=== PATIENT | male | born 1955 | race Caucasian/White ===

== ENCOUNTER → 2018-01-22 15:09 | Outpatient (CLI) | payer OTHER, MEDICAID, SELFPAY | PROVIDERS: PCP Family Medicine; Visit Provider Family Medicine | DX: M85.88 Other specified disorders of bone density and structure, other site (principal); Z92.241 Personal history of systemic steroid therapy | CPT/HCPCS: 77080 ==

== ENCOUNTER 2019-02-14 11:48 | Outpatient (RCR) | payer MEDICARE, MEDICAID, SELFPAY ==
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
== END 2019-05-15 12:04 ==
LOC: PHYS 11:48
PROVIDERS: PCP Family Medicine; Visit Provider Family Medicine
DX: M54.12 Radiculopathy, cervical region (principal); M54.2 Cervicalgia
CPT/HCPCS: 97140; 97162; 97535

== ENCOUNTER → 2019-02-14 12:01 | Outpatient (CLI) | payer MEDICARE, MEDICAID, SELFPAY ==
--- NOTE | 2019-02-14 | DI.RAD.S_ITS ---
PROCEDURE: XR ELBOW RT MIN 3V INDICATIONS: RIGHT ELBOW PAIN TECHNIQUE: 3 views of the elbow were acquired. COMPARISON: None. FINDINGS: Bones: No fractures or dislocations. No suspicious bony lesions. Soft tissues: No elbow joint effusion. No suspicious soft tissue calcifications. IMPRESSION: No elbow fracture or dislocation. No soft tissue abnormality. Dictated by: Slick Alas M.D. on 02/14/2019 at 20:22 Approved by: Slick Alas M.D. on 02/14/2019 at 20:22
== END ==
PROVIDERS: PCP Family Medicine; Visit Provider Psychiatry & Neurology Neurology
DX: M25.521 Pain in right elbow (principal)
CPT/HCPCS: 73080

== ENCOUNTER → 2019-07-29 17:42 | Outpatient (CLI) | payer OTHER, MEDICAID, SELFPAY ==
--- NOTE | 2019-07-29 | DI.RAD.S_ITS ---
PROCEDURE: XR HAND RT MIN 3V INDICATIONS: Hand Pain TECHNIQUE: 3 views of the hand(s) acquired. COMPARISON: None. FINDINGS: Bones: No fractures or dislocations. Carpal bones are normally aligned. No suspicious bony lesions. Soft tissues: No suspicious soft tissue calcifications. IMPRESSION: No trauma. Minimal degenerative osteoarthritis at the base of the first and second proximal phalanx. Dictated by: Scar Pantoja M.D. on 07/30/2019 at 9:27 Approved by: Scar Pantoja M.D. on 07/30/2019 at 9:28
--- NOTE | 2019-07-29 | DI.MRI.S_ITS ---
PROCEDURE: MR CERVICAL SPINE WO/W CON INDICATIONS: Cervicalgia TECHNIQUE: Noncontrast sagittal T1 spin echo and T2 fast spin echo, sagittal STIR, foraminal oblique sagittal T2 fast spin echo, axial gradient echo or T2 fast spin echo through the cervical spine. After the administration of contrast, axial and sagittal T1 spin echo with fat saturation through the cervical spine. COMPARISON: None. FINDINGS: Image quality: Motion is present on multiple sequences, limiting areas of fine detail evaluation. Alignment and curvature: There is straightening and slight reversal of cervical curvature with apex at C4-5. There is trace retrolisthesis of C3 on C4, C5 on C6, C6 on C7. Marrow: Marrow is normal in overall signal, without suspicious enhancement. Spinal cord: Visualized spinal cord has normal size and signal. No cerebellar tonsillar herniation. No abnormal intramedullary enhancement. Paraspinous soft tissues: No paravertebral masses or suspicious enhancement. Discs: Mild to moderate desiccation is present throughout the cervical spine. C2-3: Minimal disc bulge without spinal stenosis or foraminal narrowing. C3-4: Mild disc bulge with minimal effacement of the anterior thecal sac. Mild to moderate left and mild right foraminal narrowing with uncovertebral hypertrophy. C4-5: Mild disc bulge with minimal effacement the anterior thecal sac. Mild right and moderate to severe left foraminal narrowing with uncovertebral hypertrophy. C5-6: Mild disc bulge with minimal spinal stenosis. Moderate bilateral foraminal narrowing, with uncovertebral hypertrophy. C6-7: Mild disc bulge with minimal to mild spinal stenosis. Mild to moderate left and moderate right foraminal narrowing with uncovertebral hypertrophy. C7-T1: Mild disc bulge with minimal bilateral foraminal narrowing. IMPRESSION: 1. Motion is present limiting areas of definitive evaluation particularly degree of foraminal narrowing within the foramina. 2. Multiple disc bulges. 3. Multilevel foraminal narrowing appearing most prominent at C4-5 and C5-6. Foraminal narrowing is secondary to uncovertebral arthropathy. Dictated by: Nisreen Phillips M.D. on 07/30/2019 at 9:51 Approved by: Nisreen Phillips M.D. on 07/30/2019 at 10:43
== END ==
PROVIDERS: PCP Family Medicine; Referring Provider Psychiatry & Neurology Neurology; Visit Provider Psychiatry & Neurology Neurology
DX: M50.21 Other cervical disc displacement, high cervical region (principal); M47.812 Spondylosis without myelopathy or radiculopathy, cervical region; M48.02 Spinal stenosis, cervical region; R13.10 Dysphagia, unspecified; M79.641 Pain in right hand
CPT/HCPCS: 72156; 73130

== ENCOUNTER → 2019-08-13 16:52 | Outpatient (CLI) | payer OTHER, MEDICAID, SELFPAY ==
--- NOTE | 2019-08-13 | DI.MRI.S_ITS ---
PROCEDURE: MR STROKE Pre- and post-contrast brain MRI, non-contrast brain MR angiogram, pre- and postcontrast neck MR angiogram INDICATIONS: Episodes of temporary right eye blindness. Migraines TECHNIQUE: Brain: Noncontrast axial T1 spin echo, axial T2 fast spin echo, sagittal and axial FLAIR, coronal T2 fast spin echo, axial gradient echo, axial diffusion and ADC through the brain. After the administration of contrast, axial 3D VIBE of the cranial vasculature and brain. Brain MRA: Non-contrast 3-D time of flight MR angiogram, with multiple zxmnbgf-lxargnvbh-wrxoqakexz (MIP) reformats performed. Neck MRA: Axial and sagittal TruFISP through the neck. Coronal dynamic MR angiogram during administration of contrast in the arterial and venous phases, with 3-dimenstional xethkep-avljzxmpy-mnfattapag (MIP) reformats constructed from subtraction images. COMPARISON: None. FINDINGS: Image quality: Excellent. BRAIN: CSF spaces: Ventricles are normal in size and shape. Basal cisterns are patent. No extra-axial fluid collections. Brain: No intracranial bleeds or mass effects. Irizarry-white matter interface is normal. Diffusion weighted images show no acute ischemic insults. Brainstem appears normal. Normal intravascular flow voids are present. No abnormal intracranial enhancement. Skull and face: Calvarial marrow signal is normal. Orbits appear normal. Sinuses: Sinuses and mastoids are clear. BRAIN MR ANGIOGRAM: Anterior circulation: Intracranial internal carotid arteries are normal in size and enhancement. Left A1 segment is not visualized concerning for occluded A1 segment versus congenitally absent A1 segment. Distal left anterior cerebral artery branches are supplied from the right side via anterior communicating artery. Normal flow is seen in the right anterior cerebral artery. The flow within the middle cerebral arteries is normal and symmetric. The anterior communicating artery is seen. No stenoses, occlusions, or aneurysms. Posterior circulation: The visualized portions of the vertebral arteries demonstrate normal caliber, and join to form a normal appearing basilar artery. The flow within the posterior cerebral arteries is normal and symmetric. No stenoses, occlusions, or aneurysms. NECK MR ANGIOGRAM: Carotids: Great vessels demonstrate a conventional anatomy as they arise from the aortic arch. The origins of the common carotid arteries appear patent. The calibers and courses of both common carotid arteries are normal. The bifurcation regions appear normal bilaterally. The internal carotid arteries demonstrate normal course and caliber. Posterior circulation: The origins of the vertebral arteries appear patent. More superior portions of both vertebral arteries demonstrate normal course and caliber, and join to form a normal appearing basilar artery. Miscellaneous: Subclavian arteries appear patent. Pre-contrast images through the neck show no soft tissue abnormalities. IMPRESSION: BRAIN MRI: No evidence of acute infarction. No intracranial bleed or midline shift. No abnormal intracranial enhancement. 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 Rest of the intracranial circulation is within normal limits. NECK MR ANGIOGRAM: No hemodynamically significant stenosis is seen in the carotid arteries and vertebral arteries. Dictated by: Slick Alas M.D. on 08/13/2019 at 18:14 Approved by: Slick Alas M.D. on 08/13/2019 at 19:30
== END ==
PROVIDERS: PCP Family Medicine; Referring Provider Psychiatry & Neurology Neurology; Visit Provider Psychiatry & Neurology Neurology
DX: G45.3 Amaurosis fugax (principal); G43.909 Migraine, unspecified, not intractable, without status migrainosus
CPT/HCPCS: 70548; 70553; A9579

== ENCOUNTER → 2020-02-24 13:10 | Outpatient (CLI) | payer OTHER, MEDICAID, SELFPAY | PROVIDERS: PCP Family Medicine; Referring Provider Family Medicine; Visit Provider Family Medicine | DX: M85.88 Other specified disorders of bone density and structure, other site (principal); Z87.39 Personal history of other diseases of the musculoskeletal system and connective tissue; Z79.83 Long term (current) use of bisphosphonates | CPT/HCPCS: 77080 ==

== ENCOUNTER → 2021-12-21 18:14 | Outpatient (CLI) | payer MEDICARE, MEDICAID, SELFPAY ==
--- NOTE | 2021-12-21 18:24 | DI.MRI.S_ITS ---
PROCEDURE: MR STROKE Pre- and post-contrast brain MRI, non-contrast brain MR angiogram, pre- and postcontrast neck MR angiogram INDICATIONS: HEADACHE/AMAUROSIS FUGAX OF RT EYE TECHNIQUE: Brain: Noncontrast axial T1 spin echo, axial T2 fast spin echo, sagittal and axial FLAIR, coronal T2 fast spin echo, axial gradient echo, axial diffusion and ADC through the brain. After the administration of contrast, axial 3D VIBE of the cranial vasculature and brain. Brain MRA: Non-contrast 3-D time of flight MR angiogram, with multiple giagtxf-ddcoitbey-owdgafzqhs (MIP) reformats performed. Neck MRA: Axial and sagittal TruFISP through the neck. Coronal dynamic MR angiogram during administration of contrast in the arterial and venous phases, with 3-dimenstional czddcfq-pucroawie-dfiimujcik (MIP) reformats constructed from subtraction images. COMPARISON: [facility], MR, MR STROKE, 08/13/2019, 17:12. FINDINGS: Image quality: Excellent. BRAIN: CSF spaces: Ventricles are normal in size and shape. Basal cisterns are patent. No extra-axial fluid collections. Brain: No intracranial bleeds or mass effects. There is mild diffuse cerebral volume loss. Minimal degree of patchy high FLAIR signal within the periventricular and subcortical white matter. Irizarry-white matter interface is normal. Diffusion weighted images show no acute ischemic insults. Brainstem appears normal. Normal intravascular flow voids are present. No abnormal intracranial enhancement. Skull and face: Calvarial marrow signal is normal. Orbits appear normal. Sinuses: Sinuses and mastoids are clear. There is a 10 mm diameter region of postcontrast enhancement at the left lateral aspect of the sphenoid sinus, which is unchanged. BRAIN MR ANGIOGRAM: Anterior circulation: Intracranial internal carotid arteries are normal in size and enhancement. The flow within the paired anterior cerebral arteries is normal and symmetric. The flow within the middle cerebral arteries is normal and symmetric. The anterior communicating artery is seen. No stenoses, occlusions, or aneurysms. Posterior circulation: The visualized portions of the vertebral arteries demonstrate normal caliber, and join to form a normal appearing basilar artery. The flow within the posterior cerebral arteries is normal and symmetric. No stenoses, occlusions, or aneurysms. NECK MR ANGIOGRAM: Proximal great vessels are not well seen. Right subclavian artery is patent. Right vertebral artery is small in caliber and patent. Right common, internal, and external carotid arteries are patent. Left common, internal, and external carotid arteries are patent. Left subclavian artery is patent. Left vertebral artery is patent. Pre-contrast images through the neck show no soft tissue abnormalities. IMPRESSION: BRAIN MRI: 1. No acute process. No recent infarct. 2. Mild volume loss. Minimal small vessel ischemic disease. 3. 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 BRAIN MR ANGIOGRAM: 1. Negative cerebral MR angiography. NECK MR ANGIOGRAM: 1. No internal carotid artery stenosis bilaterally. 2. Patent bilateral vertebral arteries. Dictated by: Carla Cortes M.D. on 12/22/2021 at 9:03 Approved by: Carla Cortes M.D. on 12/22/2021 at 9:10
== END ==
PROVIDERS: PCP Family Medicine; Referring Provider Psychiatry & Neurology Neurology; Visit Provider Psychiatry & Neurology Neurology
DX: R51.9 Headache, unspecified (principal); G45.3 Amaurosis fugax; H53.2 Diplopia; G89.29 Other chronic pain
CPT/HCPCS: 70548; 70553; A9579

== ENCOUNTER → 2022-04-11 15:22 | Outpatient (CLI) | payer MEDICARE, MEDICAID, SELFPAY | PROVIDERS: PCP Family Medicine; Referring Provider Physician Assistant Medical; Visit Provider Physician Assistant Medical | DX: M85.88 Other specified disorders of bone density and structure, other site (principal); M06.9 Rheumatoid arthritis, unspecified; Z13.820 Encounter for screening for osteoporosis; Z87.311 Personal history of (healed) other pathological fracture | CPT/HCPCS: 77080 ==

== ENCOUNTER → 2022-07-04 15:44 | Outpatient (CLI) | payer MEDICARE, MEDICAID, SELFPAY ==
--- NOTE | 2022-07-04 | DI.RAD.S_ITS ---
PROCEDURE: XR RIBS RT MIN 3V W CXR 1V INDICATIONS: INTERCOSTAL PAIN TECHNIQUE: 2 views of the right ribs were acquired, along with a single view chest. COMPARISON: None. FINDINGS: Surgical changes and devices: None. Bones and chest wall: No fractures or dislocations. No suspicious bony lesions. Overlying soft tissues appear unremarkable. Lungs and pleura: No pleural effusions or pneumothorax. Lungs appear clear. Mediastinum: Mediastinal contours appear normal. Heart size is normal. IMPRESSION: No radiographic abnormalities. Dictated by: Rosa Elena Lara M.D. on 07/04/2022 at 16:54 Approved by: Rosa Elena Lara M.D. on 07/04/2022 at 16:54
== END ==
PROVIDERS: PCP Family Medicine; Referring Provider Physician Assistant Medical; Visit Provider Physician Assistant Medical
DX: R07.82 Intercostal pain (principal)
CPT/HCPCS: 71101

== ENCOUNTER → 2023-03-06 08:58 | Outpatient (CLI) | payer MEDICARE, MEDICAID, SELFPAY ==
--- NOTE | 2023-03-06 | DI.MRI.S_ITS ---
PROCEDURE: MR HEAD/BRAIN WO/W CON INDICATIONS: vison loss/headaches TECHNIQUE: Noncontrast axial T1 spin echo, axial T2 fast spin echo, sagittal and axial FLAIR, coronal T2 fast spin echo, axial gradient echo, axial diffusion and ADC through the brain. After the administration of contrast, axial and coronal and sagittal T1 spin echo with fat saturation through the brain. COMPARISON: None. FINDINGS: Image quality: Mild motion artifact. CSF spaces: Basal cisterns are patent. No extra-axial fluid collections. Ventricles are normal in size and shape. Brain: No midline shift. No intracranial bleeds or masses. No abnormal intracranial enhancement. There is mild cerebral volume loss for age. There is minimal periventricular white matter chronic small vessel ischemic change. The brainstem appears normal. Diffusion-weighted images demonstrate no acute infarct. Old tiny infarcts in the bilateral cerebral hemispheres.. Normal intravascular flow voids are present. Skull and face: Calvarial marrow is normal in signal. Orbits appear normal. Sinuses: Sinuses and mastoids appear clear. IMPRESSION: No cause for patient's symptoms are identified. No acute intracranial abnormalities. Mild age-related global volume loss and minimal chronic microvascular ischemic changes. Dictated by: Sergio Givens M.D. on 03/06/2023 at 12:28 Approved by: Sergio Givens M.D. on 03/06/2023 at 12:33
== END ==
LOC: MRI 08:59
PROVIDERS: PCP Family Medicine; Referring Provider Psychiatry & Neurology Neurology; Visit Provider Psychiatry & Neurology Neurology
DX: H54.61 Unqualified visual loss, right eye, normal vision left eye (principal); R51.9 Headache, unspecified
CPT/HCPCS: 70553

== ENCOUNTER → 2023-09-27 16:44 | Outpatient (CLI) | payer MEDICARE, MEDICAID, SELFPAY ==
--- NOTE | 2023-09-27 16:48 | DI.RAD.S_ITS ---
PROCEDURE: XR FOOT RT MIN 3V INDICATIONS: Possible foreign body in right foot TECHNIQUE: 3 views of the foot were acquired. COMPARISON: [facility], FOOT 3V LEFT, 08/08/2008, 14:44. [facility], FOOT 3V LEFT, 07/03/2008, 11:30. FINDINGS: Bones: Skin marker at the 2-3rd digit proximal phalanx. No fractures or dislocations. No suspicious bony lesions. Hallux valgus deformity with bunion formation. Soft tissues: No tibiotalar joint effusion. Achilles tendon appears normal. No radiopaque foreign body. IMPRESSION: No radiopaque foreign body demonstrated. Targeted ultrasound could be considered for further evaluation. Dictated by: Zack Jacob M.D. on 09/27/2023 at 17:48 Approved by: Zack Jacob M.D. on 09/27/2023 at 17:49
== END ==
PROVIDERS: PCP Physician Assistant; Referring Provider Nurse Practitioner Family; Visit Provider Nurse Practitioner Family
DX: M20.11 Hallux valgus (acquired), right foot (principal); M21.611 Bunion of right foot; M79.671 Pain in right foot
CPT/HCPCS: 73630

== ENCOUNTER → 2023-10-09 07:31 | Outpatient (CLI) | payer MEDICARE, MEDICAID, SELFPAY ==
--- NOTE | 2023-10-09 | DI.CT.S_ITS ---
PROCEDURE: CT FOOT RIGHT WITHOUT CON INDICATIONS: PAIN IN RIGHT FOOT TECHNIQUE: Noncontrast 1-1.5 mm axial sections acquired from above the tibiotalar joint to the bottom of the calcaneus, with coronal and sagittal reformats. COMPARISON: [facility], CR, XR FOOT RT MIN 3V, 09/27/2023, 16:50. FINDINGS: Image quality: Excellent. Bones: No acute fracture or dislocation. Joint spaces are well maintained. Soft tissues: Subcutaneous edema plantar to the 2nd and 3rd metatarsal head, with small amount of fluid. There is punctate mildly hyperdense focus plantar to the 2nd metatarsal, in the area of subcutaneous edema, measuring approximately 2 mm (series 3, image 162), which may represent a tiny glass fragment. IMPRESSION: Subcutaneous edema plantar to the 2nd and 3rd metatarsal head with small amount of fluid. Limited evaluation for drainable fluid collection given noncontrast exam. 2 mm punctate hyperdensity in the subcutaneous fat plantar to the 2nd metatarsal, nonspecific. This may represent a small glass fragment. Dictated by: Mar Spangler M.D. on 10/09/2023 at 17:42 Approved by: Mar Spangler M.D. on 10/09/2023 at 17:58
== END ==
LOC: CT 07:32
PROVIDERS: PCP Physician Assistant; Referring Provider Physician Assistant; Visit Provider Physician Assistant
DX: M79.671 Pain in right foot (principal); R60.0 Localized edema
CPT/HCPCS: 73700

== ENCOUNTER → 2023-10-26 10:40 | Outpatient (CLI) | payer MEDICARE, MEDICAID, SELFPAY ==
--- NOTE | 2023-10-26 | DI.MRI.S_ITS ---
PROCEDURE: MR FOOT RT WO CON INDICATIONS: Residual foreign body in soft tissue TECHNIQUE: Multiphasic, multisequence MRI of the forefoot was performed, without intravenous contrast administration. COMPARISON: None. FINDINGS: Image quality: Excellent. There is a multi-septated fluid collection predominantly under the head of the 2nd and 3rd metatarsals in total measuring 4.3 x 3.6 x 2.2 centimeters in maximal dimension. This may represent a large ganglion however other etiologies such as abscess or synovial cell sarcoma are within the differential. The marrow signal in the visualized bones appears within normal limits. There is mild bunion deformity involving the great toe with some mild to moderate osteoarthritic degenerative change involving the right 1st metatarsophalangeal joint. Visualized ligaments and tendons are intact. There is some [id number]-[id number] nonspecific edematous change in the subcutaneous tissues and I cannot exclude a cellulitis type pattern. Musculature appears within normal limits. IMPRESSION: 4.3 x 3.6 x 2.2 centimeter fluid collection predominantly under the head of the 2nd and 3rd metatarsals. This may represent a large ganglion however other etiologies such as abscess or synovial cell sarcoma would be within the differential. 2. Mild bunion deformity involving the great with associated mild to moderate osteoarthritic degenerative change involving the 1st tarsometatarsal joint. 3. Mild to moderate edematous changes in the subcutaneous tissues of the forefoot which is nonspecific but may represent a cellulitis type pattern. Clinical correlation is recommended. 4. No definite foreign body identified. If further evaluation is clinically indicated a CT scan may be of further clinical value. Dictated by: Jim Negron M.D. on 10/26/2023 at 15:39 Approved by: Jim Negron M.D. on 10/26/2023 at 15:49
== END ==
PROVIDERS: PCP Physician Assistant; Referring Provider Physician Assistant; Visit Provider Physician Assistant
DX: M79.5 Residual foreign body in soft tissue (principal); M21.611 Bunion of right foot
CPT/HCPCS: 73718

== ENCOUNTER → 2024-01-16 18:03 | Outpatient (CLI) | payer MEDICARE, MEDICAID, SELFPAY ==
--- NOTE | 2024-01-16 18:20 | DI.MRI.S_ITS ---
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 COMPARISON: None. FINDINGS: Image quality: Diagnostic. Alignment and Curvature: There is mild straightening of the cervical lordosis. Bone Marrow: Marrow demonstrates normal overall signal. Vertebra and discs: There is mild chronic appearing anterior wedge compression deformities involving C3-C6. There is mild intervertebral disc height loss at C3-C7. Spinal Cord: Visualized spinal cord has normal size and signal. No cerebellar tonsillar herniation. Paraspinous Soft Tissues: No paravertebral masses. Prevertebral soft tissues are normal in thickness. C2-C3: No central canal stenosis. Facet arthropathy results in severe left neural foraminal stenosis. C3-C4: Posterior longitudinal ligamentous thickening and small disc bulge result in effacement of the ventral thecal sac with mild central canal stenosis and mild bilateral neural foraminal stenosis. C4-C5: No central canal stenosis. Facet arthropathy results in moderate to severe right neural foraminal stenosis. C5-C6: Ligamentum flavum thickening, facet arthropathy and mild disc bulge result in mild central canal stenosis and mild bilateral neural foraminal stenosis. C6-C7: Posterior longitudinal ligament thickening, small disc bulge and facet arthropathy result in mild central canal stenosis without neural foraminal stenosis. C7-T1: Normal appearance. IMPRESSION: Neural foraminal stenosis which is severe on the left at C2-C3 and moderate to severe on the right at C4-C5. Dictated by: Ariel Rodriguez M.D. on 01/17/2024 at 13:45 Approved by: Ariel Rodriguez M.D. on 01/17/2024 at 13:55
--- NOTE | 2024-01-16 18:20 | DI.MRI.S_ITS ---
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 COMPARISON: None. FINDINGS: Image quality: Excellent. Rotator cuff: The supraspinatus, infraspinatus, and subscapularis tendons appear intact throughout. Sagittal images demonstrate no significant muscle atrophy. Bones and bursae: Subcortical cysts are seen at the greater tuberosity at the insertion of the supraspinatus as well as at the insertion of the subscapularis. Mildly heterogenous bone marrow signal. No bone marrow contusions or fractures. No acromioclavicular joint degeneration. The acromion demonstrates conventional anatomy, without an os acromiale. No pathologic subacromial-subdeltoid or subcoracoid bursal fluid is present. Capsule and soft tissues: Labrum appears intact. The long head of the biceps tendon demonstrates normal location and morphology. The rotator interval appears normal, without fibrosis. The coracohumeral ligament is normal in thickness. IMPRESSION: 1. Mild bony degeneration at the subscapularis tendon and supraspinatus tendon insertions. 2. Heterogenous bone marrow signal. Dictated by: Ariel Rodriguez M.D. on 01/17/2024 at 13:40 Approved by: Ariel Rodriguez M.D. on 01/17/2024 at 13:45
== END ==
PROVIDERS: PCP Physician Assistant; Referring Provider Nurse Practitioner Family; Visit Provider Nurse Practitioner Family
DX: M47.812 Spondylosis without myelopathy or radiculopathy, cervical region (principal); M48.02 Spinal stenosis, cervical region; M50.31 Other cervical disc degeneration, high cervical region; M75.41 Impingement syndrome of right shoulder; M51.9 Unspecified thoracic, thoracolumbar and lumbosacral intervertebral disc disorder; M43.8X2 Other specified deforming dorsopathies, cervical region
CPT/HCPCS: 72141; 73221

== ENCOUNTER → 2024-04-29 18:22 | Outpatient (CLI) | payer MEDICARE, MEDICAID, SELFPAY ==
--- NOTE | 2024-04-29 | DI.MRI.S_ITS ---
PROCEDURE: MR HEAD/BRAIN WO/W CON INDICATIONS: DIPLOPIA TECHNIQUE: Noncontrast axial T1 spin echo, axial T2 fast spin echo, sagittal and axial FLAIR, coronal T2 fast spin echo, axial gradient echo, axial diffusion and ADC through the brain. After the administration of contrast, axial and coronal and sagittal 3D VIBE or T1 spin echo with fat saturation through the brain. COMPARISON: [facility], MR, MR HEAD/BRAIN WO/W CON, 03/06/2023, 9:21. FINDINGS: CSF Spaces: Basal cisterns are patent. No extra-axial fluid collections. Ventricles are normal in size and shape. Brain: No intracranial masses or hemorrhage. Irizarry/white matter interface is normal. Brainstem appears normal. Diffusion-weighted sequence is unremarkable without evidence of acute infarct. Normal intravascular flow voids are present. Mild atrophy and white matter chronic ischemic change. Old cerebellar lacunar infarcts Skull and face: Calvarial marrow is normal in signal. Orbits appear normal. Sinuses: Sinuses and mastoids appear clear. IMPRESSION: Mild atrophy, chronic ischemic change, and small cerebellar old lacunar infarcts without evidence of acute infarct, hemorrhage or mass lesion. Approved by: James Solorio M.D. on 04/30/2024 at 12:32
--- NOTE | 2024-04-29 | DI.MRI.S_ITS ---
PROCEDURE: MR THORACIC SPINE WO CON INDICATIONS: DIPLOPIA,VISION LOSS/ pain in tspine TECHNIQUE: Noncontrast sagittal T1 spine echo and T2 fast spin echo, sagittal STIR, and T2 fast spin echo through the thoracic spine. COMPARISON: None. FINDINGS: Image quality: Excellent. Alignment and Curvature: There is normal bony alignment. Bone Marrow: Marrow is of normal overall signal. No acute vertebral body compression fractures. Spinal Cord: Visualized spinal cord is normal in size and signal. Paraspinous Soft Tissues: No paravertebral masses. Incidental moderate hiatal hernia Miscellaneous: On axial images, central canal and foramina appear widely patent at all scanned levels. IMPRESSION: Normal MRI of the thoracic spine. No canal stenosis or intrinsic cord lesion. Incidental moderate hiatal hernia Approved by: James Solorio M.D. on 04/30/2024 at 11:44
== END ==
PROVIDERS: PCP Physician Assistant; Referring Provider Physician Assistant; Visit Provider Physician Assistant
DX: H53.2 Diplopia (principal); H54.7 Unspecified visual loss; M54.6 Pain in thoracic spine; K44.9 Diaphragmatic hernia without obstruction or gangrene
CPT/HCPCS: 70553; 72146; A9579

== ENCOUNTER → 2024-05-09 18:44 | Outpatient (CLI) | payer MEDICARE, MEDICAID, SELFPAY ==
--- NOTE | 2024-05-09 | DI.MRI.S_ITS ---
PROCEDURE: MR FOOT RT WO/W CON INDICATIONS: soft tissue mass TECHNIQUE: Noncontrast coronal T1 spin echo and STIR, sagittal T1 spin echo with fat saturation and STIR, axial T1 spin echo and T2 fast spin echo with fat saturation. After the administration of contrast, axial/sagittal/coronal T1 spin echo with fat saturation through the right foot. COMPARISON: [facility], MR, MR FOOT RT WO CON, 10/26/2023, 10:58. FINDINGS: Image quality: Excellent. Bones: Mild marrow edema is noted involving lateral aspect of 2nd metatarsal head with mild contrast enhancement without discrete fracture line. No other area of abnormal marrow signal. No acute fracture or dislocation. No metatarsal stress fractures. No suspicious intraosseous lesion. No other area of abnormal intraosseous enhancement. Mild midfoot and forefoot joint osteoarthritic changes are seen more notably involving 1st MTP joint and articulation between 1st metatarsal head and sesamoids. Soft tissues: Previously described cystic structure over plantar aspect of 2nd toe at the level of 2nd proximal phalangeal shaft is no longer present which may indicate interval surgical resection. No discrete enhancing soft tissue mass or drainable fluid collection is identified in right foot on the current study. Trace amount of fluid within 1st interspace between 1st and 2nd metatarsal heads, which may represent intermetatarsal bursal fluid. Visualized plantar foot muscles show no gross abnormalities. Extensor and flexor tendons are intact. Principal Lisfranc ligament is intact. Sagittal views shows no evidence of plantar plate tear. IMPRESSION: 1. Suggestion of interval resection/resolution of previously noted cystic structure over plantar aspect of 2nd toe at the level of 2nd proximal phalangeal shaft and 2nd MTP joint. No discrete enhancing soft tissue mass or fluid collection is seen in midfoot and forefoot. No area of abnormal intramuscular enhancement. 2. Mild midfoot and forefoot joint osteoarthritis. Likely contusion versus subtle erosive changes involving lateral cortex of 2nd metatarsal head with mild edema and enhancement. No other area of abnormal intraosseous enhancement. No fracture or dislocation. 3. Extensor and flexor tendons are intact. Lisfranc ligament is intact. No evidence of gross plantar plate tear. Trace amount of fluid in 1st interspace which may represent trace amount of intermetatarsal bursal fluid and very low-grade bursitis. Dictated by: Slick Alas M.D. on 05/10/2024 at 8:24 Approved by: Slick Alas M.D. on 05/10/2024 at 12:16
== END ==
LOC: MRI 18:48
PROVIDERS: PCP Physician Assistant; Referring Provider Podiatrist; Visit Provider Podiatrist
DX: M79.89 Other specified soft tissue disorders (principal); M19.071 Primary osteoarthritis, right ankle and foot
CPT/HCPCS: 73720; A9579

== ENCOUNTER → 2024-05-24 10:06 | Outpatient (CLI) | payer MEDICARE, MEDICAID, SELFPAY ==
--- NOTE | 2024-05-24 10:08 | DI.RAD.S_ITS ---
PROCEDURE: XR DEXA AXIAL SKELETON INDICATIONS: SCREENING FOR OSTEOPOROSIS COMPARISON: [facility], [place], XR DEXA AXIAL SKELETON, 04/11/2022, 15:46. FINDINGS: Lumbar Spine: Bone mineral density 0.796 (previously 0.797) g/cm2, T score -2.3 (previously -2.3). Left Femoral Neck: Bone mineral density 0.816 (previously 0.819) g/cm2, T score -0.3 (previously -0.3). Left Hip: Bone mineral density 0.918 (previously 0.905) g/cm2, T score -0.2 (previously -0.3). Fracture Risk Calculation (when applicable): 10-year fracture risk of a major osteoporotic fracture 10 percent and of a hip fracture 1.9 percent. (T score greater or equal to -1.0 to: NORMAL) (T score from -1.1 to -2.4: OSTEOPENIA) (T score less than or equal to -2.5: OSTEOPOROSIS) IMPRESSION: Osteopenia--- recommend repeat DEXA in 2-3 years for reassessment. Follow-up guidelines as follows: Osteoporosis: Consider a repeat DEXA and Vertebral Fracture Assessment (VFA) exam in 2 years or sooner if medically necessary, to reassess this patient's status. Osteopenia: Consider a repeat DEXA in 2-3 years to reassess this patient's status, or if there is a new clinical indication. Normal: Consider a repeat DEXA in 5 years or sooner, or if there is a new clinical indication. All treatment decisions require clinical judgment and consideration of individual patient factors, including patient preferences, comorbidities, previous drug use, risk factors not captured in the FRAX model (e.g., frailty, falls, vitamin D deficiency, increased bone turnover, interval significant decline in bone density ) and possible under- or over-estimation of fracture risk by FRAX. In addition, the NOF Guide recommends that FDA-approved medical therapies be considered in postmenopausal women and men age >= 50 years with a: * Hip or vertebral (clinical or morphometric) fracture * T-score of <=-2.5 at the spine or hip * Ten-year fracture probability by FRAX of >= 3% for hip fracture or >=20% for major osteoporotic fracture. Dictated by: Joseph Carpio M.D. on 05/24/2024 at 18:54 Approved by: Joseph Carpio M.D. on 05/24/2024 at 18:58
== END ==
PROVIDERS: PCP Physician Assistant; Referring Provider Physician Assistant; Visit Provider Physician Assistant
DX: M85.88 Other specified disorders of bone density and structure, other site (principal); Z13.820 Encounter for screening for osteoporosis
CPT/HCPCS: 77080

== ENCOUNTER → 2024-07-04 08:43 | Outpatient (CLI) | payer MEDICARE, MEDICAID, SELFPAY ==
--- NOTE | 2024-07-04 08:44 | DI.US.S_ITS ---
PROCEDURE: US EXTREMITY NONVASC LOWER RT INDICATIONS: mass on rt foot TECHNIQUE: Real-time scanning was performed of the foot , with image documentation. COMPARISON: [facility], CR, XR FOOT RT MIN 3V, 09/27/2023, 16:50. [facility], MR, MR FOOT RT WO/W CON, 05/09/2024, 18:53. FINDINGS: Subcutaneous punctate echogenic foci present in the region of interest and foreign bodies cannot be excluded. No lymphadenopathy. IMPRESSION: Echogenic punctate foci within the soft tissues in the region of interest and foreign bodies cannot be excluded. Dictated by: Miguel Beatty [facility] Interpreted: Nisreen Phillips MD on 07/04/2024 at 9:48 Approved by: Nisreen Phillips M.D. on 07/04/2024 at 21:52
== END ==
LOC: US 08:44
PROVIDERS: PCP Physician Assistant; Referring Provider Podiatrist; Visit Provider Podiatrist
DX: M77.41 Metatarsalgia, right foot (principal); M79.89 Other specified soft tissue disorders
CPT/HCPCS: 76882

== ENCOUNTER → 2024-10-07 19:50 | Outpatient (CLI) | payer MEDICARE, MEDICAID, SELFPAY ==
--- NOTE | 2024-10-07 19:52 | DI.MRI.S_ITS ---
PROCEDURE: MR HEAD/BRAIN WO/W CON INDICATIONS: INJURY TECHNIQUE: Noncontrast axial T1 spin echo, axial T2 fast spin echo, sagittal and axial FLAIR, coronal T2 fast spin echo, axial gradient echo, axial diffusion and ADC through the brain. After the administration of contrast, axial and coronal and sagittal T1 spin echo with fat saturation through the brain. COMPARISON: [facility], MR, MR HEAD/BRAIN WO/W CON, 04/29/2024, 19:03. FINDINGS: Image quality: Excellent. CSF spaces: Basal cisterns are patent. No extra-axial fluid collections. Ventricles are normal in size and shape. Brain: No midline shift. No intracranial bleeds or masses. No abnormal intracranial enhancement. There is cerebral volume loss for age. There is minimal periventricular white matter chronic small vessel ischemic change. Small chronic bilateral cerebellar infarcts as before. The brainstem appears normal. Diffusion-weighted images demonstrate no acute infarct. No chronic ischemic insults. Normal intravascular flow voids are present. Skull and face: Calvarial marrow is normal in signal. Orbits appear normal. Sinuses: Sinuses and mastoids appear clear. IMPRESSION: 1. Mild volume loss and minimal small vessel ischemic disease. 2. Small chronic bilateral cerebellar infarcts. 3. No acute process. No recent infarct. Dictated by: Carla Cortes M.D. on 10/08/2024 at 10:12 Approved by: Carla Cortes M.D. on 10/08/2024 at 10:14
== END ==
LOC: MRI 19:50
PROVIDERS: PCP Physician Assistant; Referring Provider Physician Assistant; Visit Provider Physician Assistant
DX: S09.90XD Unspecified injury of head, subsequent encounter (principal); I67.82 Cerebral ischemia; Z86.73 Personal history of transient ischemic attack (TIA), and cerebral infarction without residual deficits; X58.XXXD Exposure to other specified factors, subsequent encounter
CPT/HCPCS: 70553; A9579